=== PATIENT | female | born 1965 | race African-American/Black ===

== ENCOUNTER → 2017-04-22 | Outpatient (CLI) | payer BC ==
[2014-04-21 08:03] VITALS: BP 133/85
--- NOTE | 2017-04-24 12:50 | SLEEP ---
DATE OF STUDY: 04/22/2017 SLEEP STUDY ATTENDING PHYSICIAN: Dr. Gopal Noel. The patient is 52 years old, who weighs 160 pounds with a BMI of 30. The patient had a previous sleep study in February 2017, which showed mild REBECCA and mild nocturnal hypoxia. The patient was clinically symptomatic. [place] score at that time was 18. As a result, treatment options were discussed including CPAP. The patient was referred back to [facility] for CPAP titration. During the night study, the patient spent 409 minutes in bed and slept for 355 minutes with a sleep efficiency of 87%. Sleep latency was 2 minutes with a REM latency of 26 minutes, which was short. Overall, sleep architecture showed normal stage I sleep, increased stage II sleep, normal slow wave and reduced REM sleep. The patient was started on CPAP at 5 cm of water and titrated up to 7 cm of water. At the final pressure, the patient slept for 174 minutes. The patient had supine as well as REM sleep. The patient's AHI was only 2 per hour and oxygen saturations remained above 94%. The patient used nasal pillows. EKG monitoring revealed a mean heart rate of 73 beats per minute, no sustained arrhythmias were observed. PLMS were not seen. IMPRESSION: 1. Sleep apnea diagnosed by previous sleep study. 2. No clinically significant periodic limb movements during sleep. RECOMMENDATIONS: 1. CPAP at 7 cm water completely eliminated patient's sleep apnea, should be used on a nightly basis. 2. Follow up in 4-6 weeks to assess compliance with CPAP and to document clinical improvement. 3. Avoid [employer] depressants. 4. Caution regarding driving until symptoms of sleep apnea resolve with the use of CPAP. HANNAH ARELLANO MD DR: ABENA/carolyn JOB#: [id number] / [id number] Dr. Goapl Gutierres
== END | disposition home or self-care (01) ==
LOC: RT 18:15
PROVIDERS: ATTEND Family Medicine
DX: G47.33 Obstructive sleep apnea (adult) (pediatric) (principal)
CPT/HCPCS: 95811